=== PATIENT | male | born 1985 | race Caucasian/White ===

== ENCOUNTER 2023-09-18 16:53 | Outpatient (REF) | payer SELFPAY | END 2023-09-18 16:54 | disposition home or self-care (01) | LOC: NCHCN 16:53 | PROVIDERS: Visit Provider Family Medicine | DX: S01.401A Unspecified open wound of right cheek and temporomandibular area, initial encounter (principal); X58.XXXA Exposure to other specified factors, initial encounter | CPT/HCPCS: 87070; 87205 ==

== ENCOUNTER 2023-12-03 17:58 | Outpatient (REF) | payer SELFPAY ==
--- OUTSIDE RECORDS SUMMARY | 2023-12-03 18:00 | XMS_ITS | CCD ---
Author Name Unknown Address [address] [place] [address] [id number] Organization Unknown Address [address] [place] [address] [phone] Care Team Providers Care Carpenter General Name Role Phone WARREN ERNST Attending Physician [phone] WARREN ERNST Er Physician 1 [phone] DELANEY Perea Registered Nurse [phone] Vital Signs Vital Sign Value Unit Date/Time Recent/Initial ? BMI (Body Mass Index) 28.97 kg/m^2 05/28/2022 20: 59 Initial VS Weight Measured 185 lbs 05/28/2022 20:59 Ini tial VS Height 67 in 05/28/2022 20:59 Initial VS BSA (Body Surface Area) 1.99 m^2 05/28/2022 2 0:59 Initial VS BP Systolic 119 mmHg 05/28/2022 20:59 Initial VS BP Diastolic 83 mmHg 05/28/2022 20:59 Initia l VS Respiratory Rate 16 bpm 05/28/2022 20:59 In itial VS Heart Rate 69 bpm 05/28/2022 20:59 Initial VS O2 % BldC Oximetry 100 % 05/28/2022 20:59 Initial VS Body Temperature 36.6 degrees 05/28/2022 20:59 In itial VS BP Systolic 135 mmHg 05/28/2022 22:56 Most Re cent VS BP Diastolic 97 mmHg 05/28/2022 22:56 Most R ecent VS Respiratory Rate 18 bpm 05/28/2022 22:[address] Recent VS Heart Rate 84 bpm 05/28/2022 22:56 Most Rec ent VS O2 % BldC Oximetry 100 % 05/28/2022 22:56 Most Recent VS Allergies Allergy Code Allergy Type Reaction Status No Known Drug Allergies 0 No known drug allergies Active Procedures Unknown or Not Available. History of Immunizations Immunization Code Date Tdap 115 09/03/2023 Problems Unknown or Not Available. Results Unknown or Not Available. Active Medications Medications Administered During Visit Medication Dose Units Frequency Route Date/Time of Last Dose CeFAZolin IVPB: 1GM/50ML 1 GM X1 05/28/2022 22:23 Encounters Encounter Diagnosis Diagnosis Code Start Date Laceration without foreign b pablo, right lower leg, initial encounter [id number] 05/28/2022 Social History Smoking Status Code Start Date End Date Current every day smoker [id number] Patient Decision Aids Unknown or Not Available. Discharge Instructions You were admitted to [facility] on 05/28/2022 20:47 with a principal diagnosis of Laceration without foreign body, right lower leg, initial encounter You were discharged from [facility] on 05/28/2022 23:10 Should you have any questions prior to discharge, please contact a member of your healthcare team. If you have left the hospital and have any questions, please contact your primary care physician. Chief Complaint and Reason For Visit Chief Complaint Date of Onset RIGHT GABRIEL LACERATION Function Status Unknown or Not Available. Plan of Care Unknown or Not Available. Referral/Transition of Care Unknown or Not Available.
[2023-12-03 21:48] LABS: Hemoglobin A1C 5.3 % (<5.7)
[2023-12-03 21:50] LABS: ALT 45 U/L (16-63); AST 34 U/L (15-37); Albumin 4.1 g/dL (3.4-5.0); Alkaline Phosphatase 43 U/L (46-116); Anion Gap 6.2 mmol/L (3-11); BUN 18 mg/dL (7-18); Bilirubin, Total 0.4 mg/dL (0.2-1.0); CO2 29.8 mmol/L (21.0-32.0); CREATININE 1.2 mg/dL (0.70-1.30); Calcium 9.5 mg/dL (8.5-10.1); Calculated LDL 48 mg/dL (<100); Chloride 104 mmol/L (98-107); Cholesterol 141 mg/dL (<200); Glucose 85 mg/dL (74-106); HDL Cholesterol 87 mg/dL (40-60); Potassium 4.2 mmol/L (3.5-5.1); Sodium 140 mmol/L (136-145); Total Protein 7.9 g/dL (6.4-8.2); Triglyceride 30 mg/dL (<150)
[2023-12-04 19:36] LABS: Hepatitis B Surface Ag Negative (Negative)
[2023-12-04 19:51] LABS: HIV-1/2 Ag & Ab Screen Negative (Negative)
[2023-12-04 20:06] LABS: Hepatitis C Ab w Rflx HCV PCR Negative (Negative)
[2023-12-05 13:42] LABS: Chlamydia Result Negative (Negative); GC Result Negative (Negative)
== END 2023-12-03 17:59 | disposition home or self-care (01) ==
LOC: NCHCN 17:58
PROVIDERS: Visit Provider Family Medicine
DX: Z13.1 Encounter for screening for diabetes mellitus (principal); Z11.4 Encounter for screening for human immunodeficiency virus [HIV]; Z86.19 Personal history of other infectious and parasitic diseases; Z11.59 Encounter for screening for other viral diseases; Z11.3 Encounter for screening for infections with a predominantly sexual mode of transmission
CPT/HCPCS: 80053; 80061; 86803; 87340; 87389; 87491; 87591; 83036; 87341